=== PATIENT | female | born 1935 | race Caucasian/White ===

== ENCOUNTER 2019-12-13 06:51 | Day surgery (SDC) | payer MEDICARE ==
[2019-12-13] VITALS (16 sets, daily range): BP systolic 136–167; BP diastolic 52–94
[~2019-12-13] VITALS: Ht 157.5 cm; Wt 64.9 kg
[~2019-12-13 06:51] MED LIST: ASPI-1094 PO; CALCIUM PO; METF500T PO; NITR0.4T48 SL; SIMV10TA98 PO; VITAMIN D3 PO; VITAMIN E PO; ZET10T PO
[2019-12-13] MEDS ORDERED: normal saline 1,000 ML IV SCH (07:15)
[2019-12-13] MEDS ORDERED: MESSAGE TO PHARMACY PO ONE (07:15)
[2019-12-13] MEDS ORDERED: glucagon, human recombinant 1mg kit SUBCUT PRN (07:15)
[2019-12-13] MEDS ORDERED: insulin Lispro (HumaLOG) vial - multi-dose SQ SCH (07:15)
[2019-12-13] MEDS ORDERED: nitroGLYCERIN 0.4mg SUBLingual tab SL PRN (07:15)
[2019-12-13] MEDS ORDERED: diphenhydrAMINE 25mg capsule PO PRN (07:15)
[2019-12-13] MEDS ORDERED: dextrose 50%-water 50ml dispensing syringe IV PRN ×2 (07:15)
[2019-12-13] MEDS ORDERED: LORazepam 0.5 MG tablet PO PRN (07:15)
[2019-12-13] MEDS ORDERED: dextrose ORAL solution 15 GM/59 ML bottle PO PRN ×2 (07:15)
[2019-12-13] MEDS ORDERED: METO25TA6 PO (07:40)
[2019-12-13] MEDS ORDERED: DOCU-148 PO (07:40)
[2019-12-13] MEDS ORDERED: CLOP75TA15 PO (07:40)
[2019-12-13] MEDS ORDERED: ASPI81TA52 PO (07:40)
[2019-12-13] MEDS ORDERED: PRAV40TA3 PO (07:40)
[2019-12-13] MEDS ORDERED: LIDOcaine 1% (10mg/ml)w/preservative injection 20ml MDV ONE (09:06)
[2019-12-13] MEDS ORDERED: iohexol 350 MG/ML 50ML vial IV ONE (09:06)
[2019-12-13] MEDS ORDERED: fentaNYL/PF 50MCG/1 ML 2ML syringe ONE (09:06)
[2019-12-13] MEDS ORDERED: midazolam 2 mg/2 ml injection ONE (09:06)
[2019-12-13] MEDS ORDERED: iohexol 350MG/ML 100ml bottle IV ONE ×2 (09:07→09:55)
[2019-12-13] MEDS ORDERED: heparin 1,000 UNITS/NS 500ml 500 ML ONE ×2 (09:07)
[2019-12-13 09:21] LABS: BASOPHILS # (AUTO) 0.1 X10'3 (0-0.2); BASOPHILS % (AUTO) 1.2 % (0-1); EOSINOPHILS # (AUTO) 0.2 X10'3 (0-0.9); EOSINOPHILS % (AUTO) 3.7 % (0-6); HEMATOCRIT 36.7 % (35.0-45.0); HEMOGLOBIN 12.3 g/dl (12.0-16.0); LYMPHOCYTES # (AUTO) 1.4 X10'3 (1.1-4.8); LYMPHOCYTES % (AUTO) 25.7 % (21-51); MEAN CORPUSCULAR HEMOGLOBIN 30.9 PG (27.0-31.0); MEAN CORPUSCULAR HGB CONC 33.6 g/dL (33.0-36.5); MEAN CORPUSCULAR VOLUME 91.8 FL (78-98); MEAN PLATELET VOLUME 8.1 FL (7.4-10.4); MONOCYTES # (AUTO) 0.4 X10'3 (0-0.9); MONOCYTES % (AUTO) 7.2 % (2-12); NEUTROPHILS # (AUTO) 3.4 X10'3 (1.8-7.7); NEUTROPHILS % (AUTO) 62.2 % (42-75); PLATELET COUNT 267 X10'3 (140-440); RED BLOOD COUNT 3.99 X10'6 (4.20-5.60); RED CELL DISTRIBUTION WIDTH 14.2 % (11.5-14.5); WHITE BLOOD COUNT 5.5 X10'3 (4.5-11.0)
[2019-12-13 09:23] LABS: ALBUMIN 3.4 G/DL (3.4-5.0); ANION GAP 9 (8-16); BLOOD UREA NITROGEN 15 MG/DL (7-18); BUN/CREATININE RATIO 20.8 (6.6-38.0); CALCIUM 9.4 MG/DL (8.5-10.1); CHLORIDE 106 MMOL/L (99-107); CREATININE 0.72 MG/DL (0.40-0.90); GLUCOSE 114 MG/DL (70-104); SODIUM 140 MMOL/L (135-145); TOTAL CARBON DIOXIDE 25.5 MMOL/L (24-32); eGFR 77 ML/MIN
[2019-12-13 09:29] LABS: PARTIAL THROMBOPLASTIN TIME 27 SECONDS (22-32)
[2019-12-13] MEDS ORDERED: nitroGLYCERIN-Tridil 50MG/D5W 250 ML IV ONE (09:56)
[2019-12-13] MEDS ORDERED: ondansetron/PF 4mg/2ml inj IV PRN (11:00)
[2019-12-13] MEDS ORDERED: HYDROcodone/acetaminophen 10/325mg tab PO PRN (11:00)
[2019-12-13] MEDS ORDERED: OXAZEpam 15mg capsule PO PRN (11:00)
[2019-12-13] MEDS ORDERED: HYDROcodone/acetaminophen 5mg/325mg tablet PO PRN (11:00)
[2019-12-13] MEDS ORDERED: proCHLORperazine 10 MG/2 ml inj IV PRN (11:00)
[2019-12-13] MEDS ORDERED: insulin glargine (Lantus) pen - multi-dose SQ SCH (21:00)
== END 2019-12-13 17:00 | disposition home or self-care (01) ==
LOC: SSTAY O 06:51
PROVIDERS: ATTEND Internal Medicine Cardiovascular Disease
DX: R94.39 Abnormal result of other cardiovascular function study (principal); T82.855A Stenosis of coronary artery stent, initial encounter; I25.10 Atherosclerotic heart disease of native coronary artery without angina pectoris; E11.9 Type 2 diabetes mellitus without complications; I10 Essential (primary) hypertension; E78.5 Hyperlipidemia, unspecified; Z79.82 Long term (current) use of aspirin; Z98.890 Other specified postprocedural states; Z79.899 Other long term (current) drug therapy; Z85.3 Personal history of malignant neoplasm of breast; Z95.5 Presence of coronary angioplasty implant and graft; Y83.8 Other surgical procedures as the cause of abnormal reaction of the patient, or of later complication, without mention of misadventure at the time of the procedure; Y92.89 Other specified places as the place of occurrence of the external cause
CPT/HCPCS: 36415; 71046; 76937; 80048; 82948; 83036; 84484; 85025; 85610; 85730; 93005; 93459; 99152; 99153; C1769; J1644; J1815; J2001; J2250; J3010; J7030; Q0163; Q9967; A4620; A6258; C1760; J3490

== ENCOUNTER 2020-02-23 08:53 | Day surgery (SDC) | payer MEDICARE ==
[~2020-02-23] VITALS: Ht 152.4 cm; Wt 63.6 kg
[~2020-02-23 08:53] MED LIST changes: -ASPI-1094 PO; +ASPI81TA52 PO; +CLOP75TA15 PO; +DOCU-148 PO; +METO25TA6 PO; +PRAV40TA3 PO; -SIMV10TA98 PO
[2020-02-23] MEDS ORDERED: albumin 25% 100mL bottle x 1 IV PRN (09:15)
[2020-02-23 09:40] VITALS: BP 118/66
[2020-02-23 11:14] VITALS: BP 137/60
[2020-02-23 11:27] VITALS: BP 154/70
[2020-02-23 11:45] VITALS: BP 144/68
== END 2020-02-23 11:54 | disposition home or self-care (01) ==
LOC: SSTAY O 08:53
PROVIDERS: ATTEND Radiology Vascular & Interventional Radiology
DX: J90 Pleural effusion, not elsewhere classified (principal); I25.10 Atherosclerotic heart disease of native coronary artery without angina pectoris; E11.9 Type 2 diabetes mellitus without complications; Z95.5 Presence of coronary angioplasty implant and graft; Z98.890 Other specified postprocedural states; Z85.3 Personal history of malignant neoplasm of breast; Z79.01 Long term (current) use of anticoagulants; Z79.82 Long term (current) use of aspirin; Z79.899 Other long term (current) drug therapy; Z83.3 Family history of diabetes mellitus; Z83.49 Family history of other endocrine, nutritional and metabolic diseases
CPT/HCPCS: 32555; 71045

== ENCOUNTER 2020-08-16 08:18 | Day surgery (SDC) | payer MEDICARE ==
[~2020-08-16] VITALS: Ht 177.8 cm; Wt 62.8 kg
[~2020-08-16 08:18] MED LIST changes: -ZET10T PO
[2020-08-16 08:35] VITALS: BP 153/91
[2020-08-16] MEDS ORDERED: albumin 25% 100mL bottle x 1 IV PRN (09:00)
[2020-08-16 09:23] VITALS: BP 159/101
[2020-08-16 09:28] VITALS: BP 155/74
[2020-08-16 09:45] VITALS: BP 147/71
== END 2020-08-16 09:55 | disposition home or self-care (01) ==
LOC: SSTAY O 08:18
PROVIDERS: ATTEND Radiology Diagnostic Radiology
DX: J90 Pleural effusion, not elsewhere classified (principal); I25.10 Atherosclerotic heart disease of native coronary artery without angina pectoris; E11.9 Type 2 diabetes mellitus without complications; Z95.5 Presence of coronary angioplasty implant and graft; Z20.822 Contact with and (suspected) exposure to COVID-19; Z85.3 Personal history of malignant neoplasm of breast; Z79.899 Other long term (current) drug therapy; Z79.01 Long term (current) use of anticoagulants; Z98.890 Other specified postprocedural states; Z79.82 Long term (current) use of aspirin; Z85.828 Personal history of other malignant neoplasm of skin; Z83.3 Family history of diabetes mellitus; Z83.42 Family history of familial hypercholesterolemia
CPT/HCPCS: 32555; 36415; 71045; 87635

== ENCOUNTER 2022-05-31 11:41 | Emergency (ER) | payer MEDICARE ==
[~2022-05-31] VITALS: Ht 157.5 cm; Wt 61.4 kg
[~2022-05-31 11:41] MED LIST changes: +LOP25T PO; -METO25TA6 PO
[2022-05-31 11:54] VITALS: BP 137/66
[2022-05-31 13:08] LABS: BASOPHILS % (AUTO) 0.5 % (0-1); EOSINOPHILS # (AUTO) 0.1 X10'3 (0-0.9); EOSINOPHILS % (AUTO) 1.4 % (0-6); HEMATOCRIT 35.4 % (35.0-45.0); HEMOGLOBIN 11.9 g/dl (12.0-16.0); LYMPHOCYTES # (AUTO) 1.6 X10'3 (1.1-4.8); LYMPHOCYTES % (AUTO) 24.9 % (21-51); MEAN CORPUSCULAR HEMOGLOBIN 29.7 PG (27.0-31.0); MEAN CORPUSCULAR HGB CONC 33.5 g/dL (33.0-36.5); MEAN CORPUSCULAR VOLUME 88.5 FL (78-98); MEAN PLATELET VOLUME 7.5 FL (7.4-10.4); MONOCYTES # (AUTO) 0.5 X10'3 (0-0.9); MONOCYTES % (AUTO) 8.2 % (2-12); NEUTROPHILS # (AUTO) 4.3 X10'3 (1.8-7.7); PLATELET COUNT 279 X10'3 (140-440); RED CELL DISTRIBUTION WIDTH 14.4 % (11.5-14.5); WHITE BLOOD COUNT 6.6 X10'3 (4.5-11.0)
[2022-05-31 13:26] LABS: ALANINE AMINOTRANSFERASE 13 U/L (12-78); ALBUMIN 3.2 G/DL (3.4-5.0); ALBUMIN/GLOBULIN RATIO 0.7 (1.1-1.5); ALKALINE PHOSPHATASE 79 IU/L (46-116); ANION GAP 8 (8-16); ASPARTATE AMINO TRANSFERASE 18 U/L (10-37); BILIRUBIN,TOTAL 0.8 MG/DL (0.1-1.0); BLOOD UREA NITROGEN 12 MG/DL (7-18); BUN/CREATININE RATIO 15.4 (6.6-38.0); CALCIUM 9.2 MG/DL (8.5-10.1); CHLORIDE 103 MMOL/L (99-107); CREATININE 0.78 MG/DL (0.40-0.90); GLUCOSE 110 MG/DL (70-104); POTASSIUM 4.2 MMOL/L (3.5-5.1); SODIUM 139 MMOL/L (135-145); TOTAL CARBON DIOXIDE 28.1 MMOL/L (24-32); TOTAL PROTEIN 7.7 G/DL (6.4-8.2); eGFR 70 ML/MIN
[2022-05-31 13:43] LABS: CLARITY,URINE SLIGHTLY CLOUDY (Clear); COLOR,URINE YELLOW (Yellow); GLUCOSE, URINE NEGATIVE (Neg); KETONES,URINE NEGATIVE (Neg); LEUKOCYTE ESTERASE ,URINE NEGATIVE (Neg); NITRITES, URINE NEGATIVE (Neg); OCCULT BLOOD,URINE TRACE-INTACT (Neg); PROTEIN,URINE NEGATIVE (Neg); UROBILINOGEN,URINE 0.2 E.U/dL (0.2-1.0)
[2022-05-31 13:59] LABS: UA COLLECTION TYPE VOIDED
[2022-05-31 14:15] LABS: SQUAMOUS EPITHELIAL CELL,UR MANY /LPF (FEW)
[2022-05-31 14:16] LABS: BACTERIA,URINE FEW /HPF (Neg); RBC,URINE 0-2 /HPF (0-2); WBC,URINE 0-4 /HPF (0-4)
[2022-05-31 14:18] LABS: C-REACTIVE PROTEIN 7.83 MG/DL (0.0-0.5)
[2022-05-31] MEDS ORDERED: HYDR-3965 PO (15:09)
== END 2022-05-31 15:22 | disposition home or self-care (01) ==
LOC: ER 11:42
DX: M16.9 Osteoarthritis of hip, unspecified (principal); E11.9 Type 2 diabetes mellitus without complications
CPT/HCPCS: 36415; 73502; 80053; 81001; 85025; 85651; 86140; 99284